=== PATIENT | male | born 1980 ===

== ENCOUNTER → 2022-02-27 15:48 | Outpatient (BNVA) | payer OTHER, SELFPAY | PROVIDERS: PCP Family Medicine; Visit Provider Anesthesiology | DX: M46.1 Sacroiliitis, not elsewhere classified (principal); M53.3 Sacrococcygeal disorders, not elsewhere classified; M96.1 Postlaminectomy syndrome, not elsewhere classified; G25.81 Restless legs syndrome; G89.4 Chronic pain syndrome | CPT/HCPCS: 99202 ==